=== PATIENT | female | born 1990 | race Caucasian/White ===

== ENCOUNTER 2018-06-03 19:37 | Inpatient (IN) | payer OTHER ==
[~2018-06-03] VITALS: Ht 154.9 cm; Wt 63.0 kg
[2018-06-03 19:53] VITALS: Ht 154.9 cm; Wt 63.0 kg
[2018-06-03 21:10] LABS: PLATELET COUNT 623 x10^3mcL (130-400)
[2018-06-03 21:11] LABS: CALCIUM 10.1 mg/dL (8.5-10.1); CARBON DIOXIDE 22.5 mmol/L (21-32); CHLORIDE SERUM 98 mmol/L (98-107); CREATININE SERUM 0.7 mg/dL (0.6-1.0); GFR1 > 60 mL/min; GLUCOSE SERUM 97 mg/dL (74-106); POTASSIUM SERUM 3.4 mmol/L (3.5-5.1); SODIUM SERUM 133 mmol/L (136-145)
[2018-06-03 21:15] LABS: ALBUMIN 4.7 g/dL (3.4-5.0); ALKALINE PHOSPHATASE 90 U/L (46-116); ALT/SGPT 20 U/L (14-59); AST/SGOT 12 U/L (15-37); BILIRUBIN TOTAL 0.45 mg/dL (0.20-1.00); LIPASE 121 IU/L (73-393)
[2018-06-03 21:18] LABS: TOTAL PROTEIN, SERUM 9.4 g/dL (6.4-8.2)
[2018-06-03 21:42] LABS: urine erythrocyte NEGATIVE (NEGATIVE)
[2018-06-03 21:54] LABS: microscopic required? YES
[2018-06-04 01:29] VITALS: BP 110/60
[2018-06-04 02:24] LABS: MAGNESIUM 2.6 mg/dL (1.8-2.4); PHOSPHOROUS 2.4 mg/dL (2.5-4.9)
[2018-06-04 02:30] LABS: T3 TOTAL 1.22 ng/mL
[2018-06-04 02:32] LABS: FREE T4 0.97 ng/dL (0.76-1.46); FREE THYROXINE INDEX 2.9 ug/dL (1.4-4.5); T4(THYROXINE) 10.5 ug/dL (4.7-13.3)
[2018-06-04 05:17] LABS: AMPHETAMINE QUAL UR NONE DETECTED (See below)
[2018-06-04 05:29] VITALS: BP 116/81
[2018-06-04 07:11] LABS: BASOPHIL % 0.5 % (0-2); PLATELET COUNT 472 x10^3mcL (130-400); RED CELL DISTRIBUTION WIDTH 17.3 % (11.5-14.5)
[2018-06-04 07:15] LABS: CALCIUM 7.8 mg/dL (8.5-10.1); CARBON DIOXIDE 24.8 mmol/L (21-32); CHLORIDE SERUM 105 mmol/L (98-107); CREATININE SERUM 0.5 mg/dL (0.6-1.0); GFR1 > 60 mL/min; GLUCOSE SERUM 106 mg/dL (74-106); MAGNESIUM 2.4 mg/dL (1.8-2.4); PHOSPHOROUS 2.8 mg/dL (2.5-4.9); POTASSIUM SERUM 4.5 mmol/L (3.5-5.1); SODIUM SERUM 138 mmol/L (136-145)
[2018-06-04 21:55] VITALS: BP 105/67
[2018-06-05 05:19] VITALS: BP 94/52
[2018-06-05 09:16] VITALS: BP 105/64
[2018-06-05 12:52] VITALS: BP 99/61
[2018-06-05 13:29] VITALS: BP 99/61
[2018-06-05] MEDS ORDERED: PRI20 PO (13:29)
[2018-06-05] MEDS ORDERED: SIMETHICONE80 MG CH (13:29)
== END 2018-06-05 16:15 | disposition home or self-care (01) | DRG 389 ==
LOC: ED 19:37 → DU 23:51
PROVIDERS: Emergency Medicine; Internal Medicine
DX: K56.7 Ileus, unspecified (principal); E87.1 Hypo-osmolality and hyponatremia; E87.6 Hypokalemia; D50.9 Iron deficiency anemia, unspecified; Z68.28 Body mass index [BMI] 28.0-28.9, adult
CPT/HCPCS: 83880; 84439; C9113; J2270; J2405; J3010; J7030; J7042; Q0092; Q9967